=== PATIENT | female | born 1960 | race Caucasian/White ===

== ENCOUNTER 2023-09-24 12:31 | Outpatient (OUT) | payer SELFPAY | END 2023-09-24 12:32 | disposition home or self-care (01) | LOC: PST 12:31 | PROVIDERS: Visit Provider Orthopaedic Surgery | DX: Z01.818 Encounter for other preprocedural examination (principal); M65.331 Trigger finger, right middle finger ==

== ENCOUNTER 2023-10-01 12:11 | Day surgery (SDC) | payer OTHER, SELFPAY ==
[2023-10-01 12:15] VITALS: BP 113/80; PULSE 81; TEMP 36.2; O2SAT 93
[2023-10-01] MEDS: CEFAZOLIN SODIUM/DEXTROSE,ISO 2 GM/50 ML PIGGYBACK IV (12:43)
[2023-10-01] MEDS: BUPIVACAINE HCL 0.5% PF 50 MG/10 ML VIAL INJ (13:36)
[2023-10-01] MEDS: LIDOCAINE HCL 1%-EPINEPHRINE 1:100,000 10 ML MDV INJ (13:38)
--- NOTE | 2023-10-01 13:51 | PM.ORPRC ---
Procedure Note Date of procedure: 10/01/23 Pre-op diagnosis: Right long trigger finger Post-op diagnosis: same as pre-op Procedure: Operative Procedure: Right long trigger finger release Anesthesia: Local Estimated Blood Loss: Minimal Tourniquet Time: None Complications: None Indications for surgery: The patient has had painful triggering in the above noted fingers/fingers. Treatment options were discussed with the patient as well as risks and benefits and they have elected to proceed with the above surgery. Operative Procedure: After informed consent was obtained the patient was brought to the operating room and placed in the supine position. Preoperatively they received intravenous antibiotics and local anesthetic infiltrated over the A1 vilma of the of the right long finger. 3 mL 1% lidocaine with epinephrine combined with 3 mL half percent Marcaine plain was utilized. The arm was prepped and draped in the usual sterile fashion. . A 1 cm incision was made in a preexisting longitudinal crease overlying the A1 vilma. Blunt dissection was carried down to the A1 vilma. The vilma was then incised from distal to proximal. Complete release was performed. The underlying tendon was visualized and found to be normal. The patient then flexed the digit and the triggering had resolved. The wound was irrigated and closed with a nylon suture. A sterile dressing was placed. The patient was then brought to the recovery room. There were no intraoperative or postoperative complications. Anesthesia: local Surgeon: Jeronimo White Estimated blood loss (mL): 1 Pathology: none sent Condition: stable
== END 2023-10-01 13:50 | disposition home or self-care (01) ==
PROVIDERS: PCP Nurse Practitioner; Visit Provider Orthopaedic Surgery
PROC: (CPT 26055; principal; 2023-10-01 13:00)
DX: M65.331 Trigger finger, right middle finger (principal)
CPT/HCPCS: 26055; J0665; J0690